=== PATIENT | male | born 1985 | race Caucasian/White ===

== ENCOUNTER 2020-08-27 12:09 | Emergency (ER) | payer SELFPAY ==
[~2020-08-27] VITALS: Ht 177.8 cm; Wt 74.1 kg
[2020-08-27 13:14] LABS: HEMATOCRIT 50.5 % (42.0-52.0); HEMOGLOBIN 17.2 g/dL (13.5-18.0); MEAN CELL VOLUME 87 fl (78-100); MEAN CORPUSCULAR HEMOGLOBIN 30 pg (27-31); MEAN CORPUSCULAR HGB CONC 34 g/dL (33-37); MEAN PLATELET VOLUME 11.8 fl (7.4-10.4); PLATELET COUNT 248 K/mm3 (130-400); RED BLOOD COUNT 5.82 M/mm3 (4.20-5.60); RED CELL DISTRIBUTION WIDTH 13.1 % (11.5-14.5); WHITE BLOOD COUNT 13.6 K/mm3 (4.8-10.8)
[2020-08-27 13:20] LABS: ALBUMIN 4.9 g/dL (3.5-5.0); POTASSIUM 3.6 mmol/L (3.5-5.1)
[2020-08-27 13:22] LABS: CALCIUM 9.8 mg/dL (8.3-10.5)
[2020-08-27 13:23] LABS: TOTAL PROTEIN 7.1 g/dL (6.4-8.3)
[2020-08-27 13:25] LABS: TOTAL BILIRUBIN 1.5 mg/dL (0.2-1.2)
[2020-08-27 13:27] LABS: LYMPHOCYTE 9 % (20-51); MONOCYTE 10 % (3-10); NEUTROPHILS 81 % (42-75)
[2020-08-27 14:03] LABS: ERYTHROCYTE SEDIMENTATION RATE 3 mm/hr (0-15)
[2020-08-27 16:45] VITALS: BP 154/88
== END 2020-08-27 16:55 | disposition short-term general hospital (02) ==
LOC: ED 12:09
PROVIDERS: Physician Assistant
DX: K56.609 Unspecified intestinal obstruction, unspecified as to partial versus complete obstruction (principal); Z90.49 Acquired absence of other specified parts of digestive tract
CPT/HCPCS: J2270; J2405; J7030; Q9967